=== PATIENT | female | born 1985 | race Hispanic/Latino ===

== ENCOUNTER 2025-02-14 19:05 | Emergency (ER) | payer SELFPAY ==
[~2025-02-14] VITALS: Ht 149.9 cm; Wt 117.9 kg
[2025-02-14 19:22] VITALS: BP 139/80; PULSE 60; RESP 18; TEMP 98.6; O2SAT 98
[2025-02-14] MEDS ORDERED: TORADOL ONE (19:23)
[2025-02-14] MEDS ORDERED: ROBAXIN PO ONE (19:23)
[2025-02-14] MEDS ORDERED: LIDODERM TP ONE (19:23)
[2025-02-14] MEDS: LIDODERM TP STA (19:31)
[2025-02-14] MEDS: TORADOL IM STA (19:32)
[2025-02-14] MEDS: ROBAXIN PO STA (19:32)
[2025-02-14 20:20] VITALS: BP 135/79; PULSE 67; RESP 18; TEMP 98.6; O2SAT 98
[2025-02-14 20:31] VITALS: BP 134/79; PULSE 62; RESP 18; TEMP 98.6; O2SAT 98
== END 2025-02-14 20:41 | disposition home or self-care (01) ==
LOC: ER 19:05
DX: R07.81 Pleurodynia (principal); I50.9 Heart failure, unspecified; F12.90 Cannabis use, unspecified, uncomplicated; Z88.6 Allergy status to analgesic agent; Z90.49 Acquired absence of other specified parts of digestive tract
CPT/HCPCS: 99285; 71250; 96372; J1885